=== PATIENT | male | born 1990 | race Hispanic/Latino ===

== ENCOUNTER 2021-02-12 15:19 | Emergency (ER) | payer OTHER, SELFPAY ==
[~2021-02-12] VITALS: Ht 170.2 cm; Wt 72.6 kg
[2021-02-12] MEDS ORDERED: KETOROLAC 60 MG VIAL (30MG/ML) IM SCH (16:00)
[2021-02-12] MEDS ORDERED: NAPR-1180 PO (17:39)
[2021-02-12 18:15] VITALS: BP 129/71
== END 2021-02-12 18:37 | disposition home or self-care (01) ==
LOC: EDH 15:19
DX: S92.422A Displaced fracture of distal phalanx of left great toe, initial encounter for closed fracture (principal); W22.8XXA Striking against or struck by other objects, initial encounter; Y93.01 Activity, walking, marching and hiking; Y92.89 Other specified places as the place of occurrence of the external cause; Y99.8 Other external cause status
CPT/HCPCS: 73600; 73630; 96372; 99284; J1885